=== PATIENT | female | born 1990 | race Caucasian/White ===

== ENCOUNTER → 2016-08-03 | Outpatient (REF) | payer OTHER ==
[~2016-08-03] MED LIST: /MOM400 PO; ACET50TA PO; COLA50CA3 PO; IBUP600T26 PO
[2016-08-04 13:29] LABS: AMYLASE 48 U/L (25-115)
== END ==
LOC: M LAB REF 12:58
PROVIDERS: ATTEND Nurse Practitioner Family
DX: R10.13 Epigastric pain (principal)

== ENCOUNTER → 2016-09-17 | Outpatient (REF) | payer OTHER | LOC: M SFHCWAGY 15:52 | PROVIDERS: ATTEND Nurse Practitioner Women's Health | DX: Z12.4 Encounter for screening for malignant neoplasm of cervix (principal) ==

== ENCOUNTER → 2016-10-14 | Outpatient (CLI) | payer BC, OTHER ==
[2016-10-14 15:25] LABS: BASO % 0.3 % (0.0-1.0); EOS # 0.1 K/mm3 (0.0-0.50); EOS % 0.8 % (0.0-3.0); LARGE UNSTAINED CELL # 0.2 K/mm3 (0.0-0.4); LARGE UNSTAINED CELL % 1.5 % (0.0-4.0); LYMPH # 2.4 K/mm3 (1.5-6.5); MEAN CORPUSCULAR HEMOGLOBIN 28.9 pg (27.0-33.0); MEAN CORPUSCULAR HGB CONC 33.6 g/dl (32.0-36.5); MONO # 0.5 K/mm3 (0.0-0.8); MONO % 5.1 % (0.0-5.0); NEUTROPHILS # 7.5 K/mm3 (1.8-7.7); NEUTROPHILS % 71.4 % (36.0-66.0); PLATELET COUNT, AUTOMATED 259 k/mm3 (150-450)
[2016-10-15 10:16] LABS: HBsAg Prenatal NEGATIVE (NEGATIVE)
[2016-10-17 09:07] LABS: WHITE BLOOD COUNT 10.5 K/mm3 (4.0-10.0)
== END ==
LOC: M LAB 14:35
PROVIDERS: ATTEND Specialist
DX: Z34.81 Encounter for supervision of other normal pregnancy, first trimester (principal); Z36 Encounter for antenatal screening of mother

== ENCOUNTER → 2016-12-31 | Outpatient (CLI) | payer BC, OTHER ==
--- NOTE | 2016-12-31 12:47 | REP ---
Clinical: Anatomical evaluation. Comparison: None . Findings: Examination demonstrates a single live intrauterine in cephalic presentation. motion is identified by technologist. Placenta is noted posteriorly and grade zero without evidence for placenta previa or abruption. Amniotic fluid volume is normal. Cervix measures 5.2 cm in length and appears closed. No evidence for nuchal cord. Gestational age by LMP 18 weeks 1 day with ELFEGO 06/02/2017 . Gestational age by current measurements 19 weeks 4 days with ELFEGO 05/23/2017 . FHR equals 157 beats per minute. BPD 4.5 cm 90 weeks 4 days HC 16.3 cm 19 weeks 1 day AC 14.5 cm 19 weeks 6 days FL 3.1 cm 19 weeks 5 days HL 2.9 cm 19 weeks 4 days HC/AC ratio 1.13 Estimated weight 307 grams (>97 percentile based on age by LMP). Anatomical assessment demonstrates normal structures including cranium, choroid plexus, cavum, cerebellum/posterior fossa, lungs, four-chamber heart/ right ventricular outflow tract, diaphragm, stomach, cord insertion, kidneys/bladder, spine, and extremities. Impression: 1. Single live intrauterine in cephalic presentation. 2. Limited evaluation of the left cardiac ventricular outflow tract, facial features, and three-vessel cord may warrant reevaluation and follow-up. The remainder of the anatomical assessment is complete and normal. Signed by Carlos Garibay MD 12/31/2016 12:38 P
== END ==
LOC: M RAD 11:25
PROVIDERS: ATTEND Specialist
DX: Z34.82 Encounter for supervision of other normal pregnancy, second trimester (principal); Z36 Encounter for antenatal screening of mother; Z3A.19 19 weeks gestation of pregnancy

== ENCOUNTER → 2017-01-17 | Outpatient (CLI) | payer BC, OTHER ==
--- NOTE | 2017-01-17 17:02 | REP ---
Obstetric sonography: History: Supervision of followup anatomy. Findings: Scanning through the gravid uterus demonstrates a viable single intrauterine gestation in a variable lie. motion is observed and heart rate is recorded at 139 beats per minute. A posterior grade 1 placenta is seen without evidence of previa. Amniotic fluid is subjectively normal. Closed cervical length is 3.9 cm visualized transabdominally. No extrauterine abnormalities observed. There has been appropriate interval growth. No anomaly is seen. Cerebellum and posterior fossa, spine and upper extremities are less than optimally seen due to position today. The following additional anatomic structures are identified today and felt to be unremarkable: cranium, cavum, face and profile, lungs, four-chamber heart with left and right ventricular outflow tract views, diaphragm, left-sided stomach, abdominal wall cord insertion, three-vessel umbilical cord, kidneys and bladder, lower extremities. Biometry chart: BPD 5.0 cm 21 weeks 1 day Head circumference 19.0 cm 21 weeks 2 days Abdominal circumference 16.3 cm 21 weeks 3 days Femur length 3.6 cm 21 weeks 2 days Humeral length 3.3 cm 21 weeks 1 day HC/AC ratio normal 1.16, cephalic index normal 0.72 estimated weight 415 grams 0 pounds 14 ounces 72nd percentile for 20 weeks 4 days. Impression: Viable single intrauterine gestation at 21 weeks 0 days by today's composite criteria. Expected gestational age estimate based on prior sonography is 22 weeks 0 days ELFEGO by prior sonography 05/23/2017. Signed by Christoph Birmingham MD 01/18/2017 07:52 A
== END ==
LOC: M RAD 15:39
PROVIDERS: ATTEND Advanced Practice Midwife
DX: Z34.82 Encounter for supervision of other normal pregnancy, second trimester (principal); Z36 Encounter for antenatal screening of mother; Z3A.21 21 weeks gestation of pregnancy

== ENCOUNTER → 2017-02-07 | Outpatient (CLI) | payer BC, OTHER ==
--- NOTE | 2017-02-07 17:33 | REP ---
OB ULTRASOUND: Real-time sonographic evaluation of the gravid uterus is performed. There is a single living intrauterine gestation. The estimated gestational age is 23 weeks 4 days with EDC 06/02/2017. Today's measurements indicate appropriate growth. BPD 61 mm = 25 weeks 0 days, at the 78th percentile. HC 237 mm = 25 weeks 5 days, at the 95th percentile. AC 197 mm = 24 weeks 3 day, at the 66th percentile. Femur length 45 mm = 24 weeks 6 days, at the 76th percentile. HC/AC ratio 1.20 within normal range. Estimated weight 725 grams 78th percentile. Cervix is closed measures 5.2 cm in length. heart rate 135 beats per minute. SEEN/GROSSLY UNREMARKABLE Lateral ventricles Yes Posterior fossa Yes Upper lip No Four-chamber heart Yes LVOT No RVOT No Stomach Yes Cord insertion Yes Three vessel cord Yes Kidneys Yes Bladder Yes Spine Yes position: Variable. Placenta: Posterior and grade 1 with no previa or abruption. Amniotic fluid: Within normal limits. Signed by Tevin Paula MD 02/08/2017 08:45 A
== END ==
LOC: M RAD 15:53
PROVIDERS: ATTEND Specialist
DX: Z34.82 Encounter for supervision of other normal pregnancy, second trimester (principal); Z3A.23 23 weeks gestation of pregnancy; Z36 Encounter for antenatal screening of mother

== ENCOUNTER → 2017-02-25 | Outpatient (CLI) | payer BC, OTHER ==
[2017-02-25 10:41] LABS: BASO % 0.1 % (0.0-1.0); EOS % 0.3 % (0.0-3.0); LARGE UNSTAINED CELL # 0.1 K/mm3 (0.0-0.4); LARGE UNSTAINED CELL % 0.7 % (0.0-4.0); LYMPH # 1.7 K/mm3 (1.5-6.5); LYMPH % 12.5 % (24.0-44.0); MEAN CORPUSCULAR HEMOGLOBIN 28.8 pg (27.0-33.0); MEAN CORPUSCULAR HGB CONC 33.1 g/dl (32.0-36.5); MEAN CORPUSCULAR VOLUME 87.1 fl (80.0-96.0); MONO # 0.5 K/mm3 (0.0-0.8); MONO % 3.8 % (0.0-5.0); NEUTROPHILS # 10.6 K/mm3 (1.8-7.7); NEUTROPHILS % 82.5 % (36.0-66.0); PLATELET COUNT, AUTOMATED 227 k/mm3 (150-450); RED CELL DISTRIBUTION WIDTH 13.3 % (11.5-14.5); WHITE BLOOD COUNT 12.8 K/mm3 (4.0-10.0)
== END ==
LOC: M LAB 09:00
PROVIDERS: ATTEND Advanced Practice Midwife
DX: Z34.83 Encounter for supervision of other normal pregnancy, third trimester (principal); Z36 Encounter for antenatal screening of mother

== ENCOUNTER → 2017-02-25 | Outpatient (CLI) | payer BC, OTHER ==
--- NOTE | 2017-02-25 10:54 | REP ---
OB ULTRASOUND: Real-time sonographic evaluation of the gravid uterus performed. There is a single living intrauterine gestation. The estimated gestational age 26 weeks 1 day, EDC 06/02/2017. Today's measurements indicate appropriate growth. Biometry and Growth: BPD 70 mm = 28 weeks 1 day, 91st percentile HC 257 mm = 28 weeks 0 days, 89th percentile AC 232 mm = 27 weeks 4 days, 80th percentile FL 52 mm = 27 weeks 6 days, 87th percentile HC/AC ratio 1.1 within normal range. Estimated weight 1116 grams 88th percentile. SEEN/GROSSLY UNREMARKABLE Lateral ventricles No Posterior fossa Yes Upper lip Yes Four-chamber heart Yes LVOT Yes RVOT No Stomach Yes Cord insertion No Three vessel cord Yes Kidneys Yes Bladder Yes Spine No Cervical length: Closed and measures 3.2 cm in length. heart rate: 140 beats per minute. position: Breech Placenta: Posterior and grade 1 with no previa or abruption. Amniotic fluid: Within normal limits, STEPHANIE 17.1 within normal range of 9.7 to 22.3. S/D ratio 3.23 within normal range. RI 0.69 within normal range. Signed by Tevin Paula MD 02/25/2017 09:38 A
== END ==
LOC: M RAD 07:56
PROVIDERS: ATTEND Advanced Practice Midwife
DX: Z34.82 Encounter for supervision of other normal pregnancy, second trimester (principal); Z36 Encounter for antenatal screening of mother; Z3A.26 26 weeks gestation of pregnancy

== ENCOUNTER → 2017-04-08 | Outpatient (REF) | payer OTHER | LOC: M LAB REF 12:54 | PROVIDERS: ATTEND Obstetrics & Gynecology | DX: Z34.83 Encounter for supervision of other normal pregnancy, third trimester (principal) ==

== ENCOUNTER 2017-05-19 09:23 | Outpatient (CLI) | payer BC, OTHER ==
[~2017-05-19] VITALS: Ht 167.6 cm; Wt 108.6 kg
[2017-05-19] MEDS ORDERED: UNIS25TA2 PO (09:33)
[2017-05-19] MEDS ORDERED: AMOX500T PO (09:33)
[2017-05-19] MEDS ORDERED: ALBU2TA PO (09:33)
[2017-05-19 09:36] VITALS: BP 133/93
[2017-05-19 09:37] VITALS: BP 135/80
[2017-05-19] MEDS ORDERED: CYCLOBENZAPRINE 10 MG TAB PO ONE (10:00)
[2017-05-19] MEDS ORDERED: PERCOCET 5MG/325MG TAB PO ONE ×2 (10:00→11:15)
[2017-05-19] MEDS ORDERED: OXYC1TAB23 PO (11:10)
== END 2017-05-19 11:57 | disposition home or self-care (01) ==
LOC: M LDO 09:23
PROVIDERS: ATTEND Specialist
DX: O26.893 Other specified pregnancy related conditions, third trimester (principal); Z3A.38 38 weeks gestation of pregnancy; M54.9 Dorsalgia, unspecified

== ENCOUNTER 2017-05-28 08:05 | Inpatient (IN) | payer BC, OTHER ==
[2017-05-28] VITALS (31 sets, daily range): BP systolic 105–149; BP diastolic 55–89
[~2017-05-28] VITALS: Ht 167.6 cm; Wt 107.2 kg
[~2017-05-28 08:05] MED LIST changes: +ALBU2TA PO; +AMOX500T PO; +OXYC1TAB23 PO; +UNIS25TA2 PO
[2017-05-28 09:11] LABS: MEAN CORPUSCULAR HEMOGLOBIN 26.7 pg (27.0-33.0); MEAN CORPUSCULAR HGB CONC 32.5 g/dl (32.0-36.5); MEAN CORPUSCULAR VOLUME 82.2 fl (80.0-96.0); PLATELET COUNT, AUTOMATED 276 10^3/uL (150-450); RED CELL DISTRIBUTION WIDTH 14.5 % (11.5-14.5); WHITE BLOOD COUNT 12.7 10^3/uL (4.0-10.0)
[2017-05-28] MEDS: miSOPROStol 50 MCG 1/2 TAB (S0191) PO SCH ×2 (09:26→13:25)
--- NOTE | 2017-05-28 09:53 | HPE ---
DATE OF ADMISSION: 05/28/2017 Tressa is a 26-year-old 2, para 1-0-0-1 at 39-2/7 weeks gestation with an estimated date of confinement (EDC) of 06/02/2017 based on last menstrual period and confirmed by first trimester ultrasound. She presents to labor and delivery today for social induction per consult with Dr. Esme Villeda. She denies regular contractions, vaginal bleeding and leakage of fluid. The fetus has been active. care was initiated at [facility] in the first trimester. course uncomplicated. OBSTETRICAL HISTORY: October 2013 spontaneous vaginal delivery, 7 pound 6 ounce female at 40 weeks gestation. OBSTETRICAL LABS: B positive. Antibody screen negative. Rubella immune. VDRL nonreactive. Urine culture no growth. Hep B surface antigen negative. HIV negative. Hep C antibody nonreactive. Gonorrhea and chlamydia negative. She declined genetic serum screening markers. Gestational diabetic screening normal at 105 and GBS is negative. PAST MEDICAL HISTORY: Anxiety. depression. Seasonal allergies. Fibrocystic breast. SURGERIES: [place] teeth. Adenoids. FAMILY HISTORY: Depression and autism. SOCIAL HISTORY: The patient is . is at bedside and supportive. She is a nonsmoker. Denies alcohol and drug use. Denies history of sexually transmitted infection and denies history of abuse physical, sexual and emotional. ALLERGIES: No known drug allergies. CURRENT MEDICATIONS: - Flexeril as needed - Ventolin as needed - vitamin OBJECTIVE: Temperature 98.7, pulse 89, respirations 22, blood pressure is 121/61. She is alert and oriented times three. No apparent distress. heart rate is 130 with moderate variability, positive accelerations, no decelerations. There is no pattern of regular contractions. Her abdomen is gravid, cephalic presentation. Estimated weight 8 pounds. Sterile vaginal exam 2 cm dilated 50% effaced, -3 station. ASSESSMENT: Intrauterine at 39-2/7 weeks. heart rate category 1. PLAN: Admit the patient to labor and delivery. Saline lock. Out of bed ad arnulfo. Regular diet at this time. Labs routine. Misoprostol 50 mcg p.o. q.4 h for cervical ripening. I did review risks to induction of labor including increased risk for section, failed induction of labor, and intolerance to labor. The patient and her have had their questions answered and still desire to proceed with induction of labor for social reasons per patient request. I do anticipate cervical ripening.
[2017-05-28] MEDS ORDERED: LR 1,000 ML IV SCH (17:39)
[2017-05-28] MEDS ORDERED: OXYTOCIN DRIP 30 UNITS in APPROPRIATE DILUENT 1 EA IV SCH (17:45)
[2017-05-28] MEDS ORDERED: FENTANYL 2MCG/ML ROPIVACAINE 0.2% IN 0.9% NACL 200ML IVBAG As Ordered ONE (21:25)
[2017-05-28] MEDS ORDERED: NALOXONE INJ 0.4 MG/1 ML VIAL (J2310) IV PRN (23:00)
[2017-05-28] MEDS ORDERED: ONDANSETRON 4MG/2ML VIAL (J2405) IV PRN (23:00)
[2017-05-28] MEDS ORDERED: LACTATED RINGER'S 1000 ML IV PRN (23:00)
[2017-05-28] MEDS ORDERED: EPIDURAL/PCA KEYS XX PRN (23:00)
[2017-05-28] MEDS ORDERED: EPIDURAL COMMENT XX SCH (23:00)
[2017-05-28] MEDS ORDERED: ePHEDrine SULFATE 25 MG/5 ML(5MG/ML) SYRINGE IV PRN (23:00)
[2017-05-28] MEDS ORDERED: FENTANYL/ROPIVACAINE/NACL BAG 200 ML EPIDURAL SCH (23:00)
[2017-05-28] MEDS ORDERED: REFRIGERATOR IV KEYS XX PRN (23:00)
[2017-05-28] MEDS ORDERED: diphenhydrAMINE INJ 50MG/ML VIAL (J1200) IV PRN (23:00)
[2017-05-29] VITALS (10 sets, daily range): BP systolic 97–143; BP diastolic 52–74
[2017-05-29] MEDS ORDERED: OXYTOCIN DRIP 30 UNITS in APPROPRIATE DILUENT 1 EA IV SCH (00:51)
[2017-05-29] MEDS ORDERED: RHOGAM 300 MCG (1500 IU) INJ (J2790) IM SCH (01:00)
[2017-05-29] MEDS ORDERED: DOCUSATE SODIUM 100 MG CAP PO PRN (01:00)
[2017-05-29] MEDS ORDERED: DIBUCAINE 1% OINTMENT 30GM TOP PRN (01:00)
[2017-05-29] MEDS ORDERED: ONDANSETRON 4MG/2ML VIAL (J2405) IV PRN (01:00)
[2017-05-29] MEDS ORDERED: METHYLERGONOVINE MALEATE 0.2 MG TAB PO PRN (01:00)
[2017-05-29] MEDS ORDERED: MEASLES,MUMPS,RUBELLA VACCINE INJ (MMR-II) (90707) SC SCH (01:00)
[2017-05-29 01:03] LABS: CORD GAS ABE A -2.6; CORD GAS ABE V -5.2; CORD GAS HCO3 A 25.2 MEQ/L; CORD GAS HCO3 V 19.7 MEQ/L; CORD GAS O2 SAT A 35.3 %; CORD GAS O2 SAT V 69.6 %; CORD GAS PCO2 A 55.3 mmHg; CORD GAS PCO2 V 36.8 mmHg; CORD GAS PH A 7.277 UNITS; CORD GAS PH V 7.347 UNITS; CORD GAS PO2 A 17.6 mmHg; CORD GAS SBC A 20.7 MEQ/L; CORD GAS SBC V 19.6 MEQ/L; CORD GAS TCO2 A 26.9 MEQ/L; CORD GAS TCO2 V 20.9 MEQ/L
--- NOTE | 2017-05-29 01:47 | DN ---
DATE OF SERVICE: 05/29/2017 Tressa is a 26-year-old 2, para 2-0-0-2 now, who was admitted to labor and delivery for induction of labor due to social reasons. Misoprostol and intravenous (IV) Pitocin was utilized and labor did ensue. She used an epidural for her labor coping. She progressed to full dilation at 0023. She pushed to a normal spontaneous vaginal delivery of a live male infant in occiput anterior (OA) position with restitution to right occiput transverse (ROT) position at 0030. There was a nuchal cord times one, tight that was reduced with a somersault maneuver at the time of delivery. [place] male shoulders delivered with gentle downward traction and the corpus immediately followed. He was placed on maternal abdomen crying and active. Mouth and nares were bulb suctioned. Cord was clamped times two and cut by the father of the baby. Cord blood and cord gases were obtained. A spontaneous expulsion of an intact placenta with three-vessel cord by Nina mechanism was at 0035. Uterine hemostasis was achieved with IV Pitocin rapid infusion and uterine fundal massage. Estimated blood loss 300 mL. Perineum and vagina inspected, noted to be intact. [place] male weighed 8 pounds 7 ounces, 3830 grams, scores 8 and 9. Mom is going to bottle feed her son and the family have named him Mk. At the close of delivery, lap counts, needle counts, and instrument counts were correct and verified.
[2017-05-29] MEDS: IBUPROFEN 800 MG TAB PO PRN ×2 (05:33→15:24)
[2017-05-29] MEDS: PRENATAL VITAMINS CHEWABLE TABLET PO SCH (09:25)
[2017-05-29] MEDS: ACETAMINOPHEN 500 MG TAB PO PRN (09:25)
[2017-05-30] MEDS: ACETAMINOPHEN 500 MG TAB PO PRN (00:20)
[2017-05-30 05:00] VITALS: BP 138/74
[2017-05-30 05:57] VITALS: BP 135/89
[2017-05-30] MEDS: PRENATAL VITAMINS CHEWABLE TABLET PO SCH (07:59)
[2017-05-30] MEDS: IBUPROFEN 800 MG TAB PO PRN (08:00)
[2017-05-30] MEDS ORDERED: IBUP-1114 PO (09:32)
== END 2017-05-30 10:15 | disposition home or self-care (01) | DRG 560 ==
LOC: M LDI 08:05 → M OBS 05-29 02:54
PROVIDERS: ADMIT Advanced Practice Midwife; ATTEND Advanced Practice Midwife
PROC: 10E0XZZ Delivery of Products of Conception, External Approach (ICD-10-PCS; principal; 2017-05-29)
PROC: 3E0DXGC Introduction of Other Therapeutic Substance into Mouth and Pharynx, External Approach (ICD-10-PCS; 2017-05-29)
DX: O69.89X0 Labor and delivery complicated by other cord complications, not applicable or unspecified (principal); Z37.0 Single live birth; Z3A.39 39 weeks gestation of pregnancy

== ENCOUNTER 2017-07-06 08:34 | Day surgery (SDC) | payer BC, OTHER ==
[2017-07-06] MEDS ORDERED: LR 1,000 ML IV ×3 (08:45→11:30)
[2017-07-06] MEDS ORDERED: LIDOCAINE 1% MDV 20ML VIAL SQ (08:45)
[2017-07-06 09:03] LABS: HEMATOCRIT 37.8 % (36.0-47.0); HEMOGLOBIN 11.9 g/dl (12.0-16.0)
[2017-07-06 09:16] LABS: CONTROL LINE UCG INT CTR LINE PRESENT; URINE PREG TEST NEGATIVE (NEGATIVE)
[2017-07-06] MEDS: BUPIVACAINE HCL 0.25% 30 ML VIAL As Ordered (10:29)
[2017-07-06] MEDS ORDERED: HYDROmorphone HCL 1 MG/ML SYRINGE (J1170) As Ordered (11:01)
[2017-07-06] MEDS ORDERED: fentaNYL 100 MCG/2 ML INJECTION (J3010) As Ordered (11:01)
[2017-07-06] MEDS ORDERED: MIDAZOLAM INJ 2 MG/2 ML VIAL (J2250) As Ordered (11:01)
[2017-07-06] MEDS ORDERED: fentaNYL 250 MCG/5 ML INJECTION (J3010) As Ordered (11:01)
[2017-07-06] MEDS ORDERED: GLYCOPYRROLATE INJ 0.2 MG/ML 2 ML VIAL As Ordered ×2 (11:04)
[2017-07-06] MEDS ORDERED: LIDOCAINE 2% INJ 100 MG/5 ML SDV (FOR ANES.) As Ordered (11:04)
[2017-07-06] MEDS ORDERED: PROPOFOL 200 MG/20 ML VIAL As Ordered (11:04)
[2017-07-06] MEDS ORDERED: ROCURONIUM BROMIDE 50 MG/5 ML VIAL As Ordered (11:04)
[2017-07-06] MEDS ORDERED: NEOSTIGMINE 10 MG/10 ML VIAL (J2710) As Ordered (11:04)
[2017-07-06] MEDS ORDERED: KETOROLAC 60 MG/2 ML VIAL (J1885) As Ordered (11:05)
[2017-07-06] MEDS ORDERED: ONDANSETRON 4MG/2ML VIAL (J2405) As Ordered (11:05)
[2017-07-06] MEDS ORDERED: dexameTHASONE 4 MG/ML 1ML VIAL (J1100) As Ordered (11:05)
[2017-07-06] MEDS: HYDROmorphone HCL 1 MG/ML SYRINGE (J1170) IV ×3 (11:06→11:17)
[2017-07-06] MEDS ORDERED: ONDANSETRON 4MG/2ML VIAL (J2405) IV (11:30)
[2017-07-06] MEDS ORDERED: fentaNYL 100 MCG/2 ML INJECTION (J3010) IV (11:30)
[2017-07-06] MEDS ORDERED: PERCOCET 5MG/325MG TAB PO ×2 (11:30)
[2017-07-06] MEDS: PERCOCET 5MG/325MG TAB PO ×2 (11:32→12:05)
== END 2017-07-06 14:29 | disposition home or self-care (01) ==
LOC: M SDC 08:34
DX: Z30.2 Encounter for sterilization (principal); M12.9 Arthropathy, unspecified; M51.9 Unspecified thoracic, thoracolumbar and lumbosacral intervertebral disc disorder; R09.89 Other specified symptoms and signs involving the circulatory and respiratory systems
CPT/HCPCS: 58671

== ENCOUNTER → 2017-12-13 | Outpatient (CLI) | payer BC, OTHER ==
[2017-12-13 18:53] LABS: FREE T4 0.74 NG/DL (0.76-1.46)
== END ==
LOC: M LAB 17:30
DX: R63.5 Abnormal weight gain (principal)
CPT/HCPCS: 84443

== ENCOUNTER → 2018-01-16 | Outpatient (REF) | payer OTHER ==
[2018-01-17 14:50] LABS: CHLAMYDIA DNA AMPLIFICATION POSITIVE (NEGATIVE); GC DNA AMPLIFICATION NEGATIVE (NEGATIVE)
== END ==
LOC: M LAB REF 13:07
DX: Z01.411 Encounter for gynecological examination (general) (routine) with abnormal findings (principal)

== ENCOUNTER → 2018-02-06 | Outpatient (REF) | payer OTHER ==
[2018-02-06 22:05] LABS: FREE T3 3.4 PG/ML (2.2-4.0)
[2018-02-08 08:59] LABS: HEPATITIS B SURFACE ANTIGEN NEGATIVE (NEGATIVE)
[2018-02-08 09:11] LABS: HEPATITIS C VIRUS ABY INDEX 0.1 INDEX (<0.8)
[2018-02-08 09:12] LABS: HEPATITIS B CORE ANTIBODY IGM NEGATIVE (NEGATIVE)
[2018-02-08 09:13] LABS: HEPATITIS A ANTIBODY IGM NEGATIVE (NEGATIVE); HIV 1&2 SCREEN CENTAUR NEGATIVE (NEGATIVE)
== END ==
LOC: M LAB REF 17:11
DX: E03.9 Hypothyroidism, unspecified (principal); Z11.59 Encounter for screening for other viral diseases
CPT/HCPCS: 87340

== ENCOUNTER → 2018-04-11 | Outpatient (REF) | payer OTHER ==
[2018-04-11 20:57] LABS: CHLAMYDIA DNA AMPLIFICATION NEGATIVE (NEGATIVE); GC DNA AMPLIFICATION NEGATIVE (NEGATIVE)
== END ==
LOC: M SFHCLERA 11:01
DX: N30.01 Acute cystitis with hematuria (principal)

== ENCOUNTER → 2018-06-23 | Outpatient (REF) | payer OTHER ==
[~2018-06-23] MED LIST changes: +IBUP-1114 PO; -UNIS25TA2 PO; +UNIS25TA3 PO
== END ==
LOC: M SFHCLERA 10:25
PROVIDERS: ATTEND Physician Assistant
DX: J02.9 Acute pharyngitis, unspecified (principal)

== ENCOUNTER → 2018-07-31 | Outpatient (REF) | payer OTHER | LOC: M SFHCLERA 10:28 | PROVIDERS: ATTEND Nurse Practitioner Family | DX: R30.0 Dysuria (principal) ==

== ENCOUNTER → 2019-01-13 | Outpatient (CLI) | payer OTHER ==
[~2019-01-13] MED LIST changes: -/MOM400 PO; -ACET50TA PO; +MAPA500T17 PO; +MILK10SU PO
== END ==
LOC: M WUC 11:55
PROVIDERS: ATTEND Physician Assistant
DX: L65.8 Other specified nonscarring hair loss (principal); E66.8 Other obesity; N94.6 Dysmenorrhea, unspecified; F34.1 Dysthymic disorder

== ENCOUNTER → 2019-01-20 | Outpatient (CLI) | payer OTHER, SELFPAY ==
[2019-01-20 12:24] LABS: BASO % 0.4 % (0.0-1.0); EOS % 0.5 % (0.0-3.0); HEMATOCRIT 40.4 % (36.0-47.0); HEMOGLOBIN 13.4 g/dl (12.0-15.5); LYMPH # 1.8 10^3/uL (1.5-6.5); LYMPH % 20.8 % (24.0-44.0); MEAN CORPUSCULAR HEMOGLOBIN 29.5 pg (27.0-33.0); MEAN CORPUSCULAR HGB CONC 33.2 g/dl (32.0-36.5); MEAN CORPUSCULAR VOLUME 88.8 fl (80.0-96.0); MONO # 0.4 10^3/uL (0.0-0.8); MONO % 5.2 % (0.0-5.0); NEUTROPHILS # 6.2 10^3/uL (1.8-7.7); NEUTROPHILS % 72.6 % (36.0-66.0); PLATELET COUNT, AUTOMATED 273 10^3/uL (150-450); RED BLOOD COUNT 4.55 10^6/uL (4.00-5.40); WHITE BLOOD COUNT 8.5 10^3/uL (4.0-10.0)
[2019-01-20 12:51] LABS: BLOOD UREA NITROGEN 8 MG/DL (7-18); CALCIUM LEVEL 9.1 MG/DL (8.5-10.1); CARBON DIOXIDE LEVEL 27 MEQ/L (21-32); CHLORIDE LEVEL 107 MEQ/L (98-107); CREATININE FOR GFR 0.59 MG/DL (0.55-1.30); FREE T4 0.83 NG/DL (0.76-1.46); GLOMERULAR FILTRATION RATE > 60.0 (>60); GLUCOSE, FASTING 79 MG/DL (70-100); POTASSIUM SERUM 4.6 MEQ/L (3.5-5.1); SODIUM LEVEL 140 MEQ/L (136-145); THYROID STIMULATING HORMONE 0.845 uIU/ML (0.358-3.740)
[2019-01-22 10:18] LABS: THYROGLOBULIN ANTIBODY 27.6 U/ML (<60.0); THYROID PEROXIDASE ANTIBODY < 28.0 U/ML (<60.0); TOTAL 25(OH) VITAMIN D 25.9 NG/ML (30.0-100.0)
== END ==
LOC: M LAB 11:29
PROVIDERS: ATTEND Physician Assistant
DX: L65.8 Other specified nonscarring hair loss (principal)

== ENCOUNTER → 2019-04-27 | Outpatient (CLI) | payer OTHER ==
--- NOTE | 2019-04-27 17:36 | REP ---
HISTORY: Pelvic and peroneal pain. The patient complains of pain. Bilateral ovarian Doppler was obtained. Transvesical and transvaginal imaging was obtained. The uterus measures 9.7 x 4.3 x 5.4 cm. The parenchymal echo pattern is normal. The endometrial echo complex is normal measuring 5 mm. Right ovary measures 3.2 x 2.8 x 2.9 cm and is within normal limits with an RI of 0.64. Left ovary measures 3 x 2.2 x 2.4 cm and is within normal limits with an RI of 0.74. In the left adnexa, there is a paraovarian anechoic structure which measures 2.4 x 1.4 x 1.5 cm consistent with a paraovarian cyst. IMPRESSION: No abnormalities are noted. There is a left paraovarian cyst. Electronically Signed by José Miguel Pillai DO 04/30/2019 02:30 P
== END ==
LOC: M RAD 08:00
PROVIDERS: ATTEND Physician Assistant
DX: R10.2 Pelvic and perineal pain (principal)

== ENCOUNTER → 2019-05-04 | Outpatient (REF) | payer OTHER ==
[2019-05-07 13:06] LABS: CHLAMYDIA DNA AMPLIFICATION NEGATIVE (NEGATIVE); GC DNA AMPLIFICATION NEGATIVE (NEGATIVE)
== END ==
LOC: M LAB REF 10:23
PROVIDERS: ATTEND Advanced Practice Midwife
DX: Z11.3 Encounter for screening for infections with a predominantly sexual mode of transmission (principal)

== ENCOUNTER → 2020-02-14 | Outpatient (REF) | payer OTHER | LOC: M SFHCLUC 06:59 | PROVIDERS: ATTEND Physician Assistant | DX: R07.0 Pain in throat (principal) ==

== ENCOUNTER → 2020-06-10 | Outpatient (REF) | payer OTHER | LOC: M LAB REF 17:19 | PROVIDERS: ATTEND Physician Assistant | DX: Z11.3 Encounter for screening for infections with a predominantly sexual mode of transmission (principal) ==

== ENCOUNTER → 2020-12-11 | Outpatient (REF) | payer OTHER | LOC: M LAB REF 21:19 | PROVIDERS: ATTEND Physician Assistant | DX: N39.0 Urinary tract infection, site not specified (principal) ==

== ENCOUNTER → 2021-04-07 | Outpatient (REF) | payer OTHER | LOC: M SFHCWAGY 18:08 | PROVIDERS: ATTEND Advanced Practice Midwife | DX: Z12.4 Encounter for screening for malignant neoplasm of cervix (principal) ==

== ENCOUNTER → 2021-08-04 | Outpatient (CLI) | payer OTHER | LOC: M PLAIMG 15:22 | PROVIDERS: ATTEND Nurse Practitioner Adult Health | DX: M54.2 Cervicalgia (principal) ==

== ENCOUNTER → 2021-08-19 | Outpatient (REF) | payer OTHER | LOC: M WUC 18:32 | PROVIDERS: ATTEND Physician Assistant | DX: J01.90 Acute sinusitis, unspecified (principal) | CPT/HCPCS: 87633; U0003 ==

== ENCOUNTER → 2021-10-30 | Outpatient (CLI) | payer OTHER | LOC: M PLAIMG 15:23 | PROVIDERS: ATTEND Physician Assistant | DX: M47.892 Other spondylosis, cervical region (principal) ==

== ENCOUNTER → 2022-03-30 | Outpatient (REF) | payer OTHER ==
[2022-03-30 18:08] LABS: APPEARANCE, URINE MANUAL CLEAR (CLEAR); COLOR, URINE MANUAL YELLOW (YELLOW)
[2022-03-30 18:09] LABS: BILIRUBIN, URINE MANUAL NEGATIVE (NEGATIVE); BLOOD URINE MANUAL TRACE (NEGATIVE); GLUCOSE, URINE (UA) MANUAL NEGATIVE (NEGATIVE); KETONE, URINE MANUAL NEGATIVE (NEGATIVE); LEUKOCYTE ESTERASE, URINE MAN NEGATIVE (NEGATIVE); NITRITE, URINE MANUAL NEGATIVE (NEGATIVE); PROTEIN, URINE MANUAL NEGATIVE (NEGATIVE); UROBILINOGEN, URINE MANUAL NORMAL (NORMAL)
[2022-03-30 18:45] LABS: BACTERIA, URINE MOD AMOUNT; RBC, URINE 0-1 /hpf (0-3); SQUAMOUS EPITHELIAL CELL URINE MOD AMOUNT /hpf (SMALL AMT)
[2022-03-30 18:46] LABS: MUCUS, URINE SMALL AMOUNT (NEGATIVE)
== END ==
LOC: M LAB REF 16:53
PROVIDERS: ATTEND Nurse Practitioner Adult Health
DX: N89.8 Other specified noninflammatory disorders of vagina (principal); N39.0 Urinary tract infection, site not specified

== ENCOUNTER → 2022-05-03 | Outpatient (REF) | payer BC ==
[2022-05-03 20:21] LABS: GC DNA AMPLIFICATION NEGATIVE (NEGATIVE)
== END ==
LOC: M LAB REF 17:59
PROVIDERS: ATTEND Nurse Practitioner Adult Health
DX: Z20.2 Contact with and (suspected) exposure to infections with a predominantly sexual mode of transmission (principal)

== ENCOUNTER → 2023-01-11 | Outpatient (CLI) | payer BC ==
[~2023-01-11] MED LIST changes: -ALBU2TA PO; +ALBU2TAB13 PO
[2023-01-11 10:06] LABS: BASO % 0.4 % (0.0-1.0); EOS % 0.4 % (0.0-3.0); HEMATOCRIT 40.3 % (36.0-47.0); HEMOGLOBIN 13.3 g/dl (12.0-15.5); LYMPH # 2.1 10^3/uL (1.5-5.0); LYMPH % 22.9 % (24.0-44.0); MEAN CORPUSCULAR HEMOGLOBIN 29.3 pg (27.0-33.0); MEAN CORPUSCULAR VOLUME 88.8 fl (80.0-96.0); MONO # 0.5 10^3/uL (0.0-0.8); MONO % 5.1 % (2.0-8.0); NEUTROPHILS # 6.5 10^3/uL (1.5-8.5); NEUTROPHILS % 70.5 % (36.0-66.0); PLATELET COUNT, AUTOMATED 122 10^3/uL (150-450); RED BLOOD COUNT 4.54 10^6/uL (4.00-5.40); WHITE BLOOD COUNT 9.2 10^3/uL (4.0-10.0)
[2023-01-11 10:29] LABS: ALBUMIN 3.5 G/DL (3.2-5.2); ALKALINE PHOSPHATASE 73 U/L (46-116); ALT/SGPT < 9 U/L (7.0-40); AST/SGOT 14 U/L (<34); BLOOD UREA NITROGEN 13 MG/DL (9-23); CALCIUM LEVEL 8.7 MG/DL (8.5-10.1); CARBON DIOXIDE LEVEL 26 MMOL/L (20-31); CHLORIDE LEVEL 105 MMOL/L (98-107); CHOLESTEROL LEVEL 203 MG/DL (<200); CHOLESTEROL RISK RATIO 4.86 (<5); CREATININE FOR GFR 0.54 MG/DL (0.55-1.30); GLOMERULAR FILTRATION RATE > 60.0 (>60); GLUCOSE, FASTING 81 MG/DL (60-100); HDL CHOLESTEROL 41.7 MG/DL (>40); LDL CHOLESTEROL 129.7 MG/DL (<100); NON-HDL-C 161.3 MG/DL; POTASSIUM SERUM 4.5 MMOL/L (3.5-5.1); SODIUM LEVEL 136 MMOL/L (136-145); TOTAL PROTEIN 6.8 G/DL (5.7-8.2); TRIGLYCERIDES LEVEL 158 MG/DL (<150)
[2023-01-11 10:30] LABS: THYROID STIMULATING HORMONE 0.934 uIU/ML (0.55-4.78); TOTAL 25(OH) VITAMIN D 39.6 NG/ML (20.0-100.0)
[2023-01-11 10:31] LABS: FOLLICLE STIMULATING HORMONE 0.4 mIU/ML; LUTEINIZING HORMONE 0.5 mIU/ML
[2023-01-11 10:32] LABS: FREE T4 0.93 NG/DL (0.89-1.76)
== END ==
LOC: M WUC 08:05
PROVIDERS: ATTEND Family Medicine
DX: E55.9 Vitamin D deficiency, unspecified (principal); Z13.29 Encounter for screening for other suspected endocrine disorder; Z13.220 Encounter for screening for lipoid disorders

== ENCOUNTER → 2023-03-01 | Outpatient (REF) | payer BC ==
[2023-03-01 15:09] LABS: BLOOD UREA NITROGEN 7 MG/DL (9-23); CALCIUM LEVEL 8.8 MG/DL (8.5-10.1); CARBON DIOXIDE LEVEL 26 MMOL/L (20-31); CHLORIDE LEVEL 107 MMOL/L (98-107); CREATININE FOR GFR 0.56 MG/DL (0.55-1.30); GLOMERULAR FILTRATION RATE > 60.0 (>60); GLUCOSE, FASTING 93 MG/DL (60-100); POTASSIUM SERUM 4.2 MMOL/L (3.5-5.1); SODIUM LEVEL 139 MMOL/L (136-145)
== END ==
LOC: M LABWUC 11:48
PROVIDERS: ATTEND Family Medicine
DX: E88.81 Metabolic syndrome and other insulin resistance (principal)

== ENCOUNTER → 2023-03-15 | Outpatient (CLI) | payer BC | LOC: M WUC 12:34 | PROVIDERS: ATTEND Family Medicine | DX: J20.9 Acute bronchitis, unspecified (principal) ==

== ENCOUNTER → 2023-12-21 | Outpatient (REF) | payer BC ==
[2023-12-21 12:26] LABS: Trichomonas vaginalis (AMP) NOT DETECTED (NEGATIVE)
[2023-12-21 12:50] LABS: GC DNA AMPLIFICATION NEGATIVE (NEGATIVE)
== END ==
LOC: M LAB REF 10:05
PROVIDERS: ATTEND Nurse Practitioner Family
DX: R10.30 Lower abdominal pain, unspecified (principal); Z11.3 Encounter for screening for infections with a predominantly sexual mode of transmission

== ENCOUNTER → 2024-01-18 | Outpatient (CLI) | payer BC ==
[2024-01-18 11:56] LABS: BASO # 0.1 10^3/uL (0.0-0.2); BASO % 0.5 % (0.0-1.0); EOS # 0.1 10^3/uL (0.0-0.5); EOS % 0.6 % (0.0-3.0); HEMATOCRIT 41.1 % (36.0-47.0); HEMOGLOBIN 13.4 g/dl (12.0-15.5); LYMPH # 2.2 10^3/uL (1.5-5.0); LYMPH % 21.2 % (24.0-44.0); MEAN CORPUSCULAR HEMOGLOBIN 29.3 pg (27.0-33.0); MEAN CORPUSCULAR HGB CONC 32.6 g/dl (32.0-36.5); MEAN CORPUSCULAR VOLUME 89.7 fl (80.0-96.0); MONO # 0.5 10^3/uL (0.0-0.8); MONO % 4.4 % (2.0-8.0); NEUTROPHILS # 7.4 10^3/uL (1.5-8.5); NEUTROPHILS % 72.8 % (36.0-66.0); PLATELET COUNT, AUTOMATED 287 10^3/uL (150-450); RED BLOOD COUNT 4.58 10^6/uL (4.00-5.40); WHITE BLOOD COUNT 10.2 10^3/uL (4.0-10.0)
[2024-01-18 12:10] LABS: HEMOGLOBIN A1c 4.9 % (4.0-6.0)
[2024-01-18 12:33] LABS: THYROID STIMULATING HORMONE 0.981 uIU/ML (0.55-4.78)
[2024-01-18 12:35] LABS: ALBUMIN 3.8 G/DL (3.2-5.2); ALKALINE PHOSPHATASE 68 U/L (46-116); ALT/SGPT 19 U/L (7.0-40); AST/SGOT 9 U/L (<34); BILIRUBIN,TOTAL 0.9 MG/DL (0.3-1.2); BLOOD UREA NITROGEN 14 MG/DL (9-23); CARBON DIOXIDE LEVEL 26 MMOL/L (20-31); CHLORIDE LEVEL 106 MMOL/L (98-107); CHOLESTEROL LEVEL 202 MG/DL (<200); CHOLESTEROL RISK RATIO 4.65 (<5); CREATININE FOR GFR 0.53 MG/DL (0.55-1.30); FREE T4 1.12 NG/DL (0.89-1.76); GLOMERULAR FILTRATION RATE > 60.0 (>60); GLUCOSE, FASTING 81 MG/DL (60-100); HDL CHOLESTEROL 43.4 MG/DL (>40); NON-HDL-C 158.6 MG/DL; POTASSIUM SERUM 4.2 MMOL/L (3.5-5.1); SODIUM LEVEL 139 MMOL/L (136-145); TOTAL PROTEIN 6.8 G/DL (5.7-8.2); TRIGLYCERIDES LEVEL 148 MG/DL (<150)
== END ==
LOC: M WUC 08:22
PROVIDERS: ATTEND Family Medicine
DX: E88.810 Metabolic syndrome (principal); Z13.0 Encounter for screening for diseases of the blood and blood-forming organs and certain disorders involving the immune mechanism; Z13.220 Encounter for screening for lipoid disorders

== ENCOUNTER → 2024-06-20 | Outpatient (REF) | payer BC | LOC: M LAB REF 16:58 | PROVIDERS: ATTEND Physician Assistant | DX: N39.0 Urinary tract infection, site not specified (principal); N76.0 Acute vaginitis ==

== ENCOUNTER → 2024-08-09 | Outpatient (CLI) | payer BC | LOC: M WUC 15:15 | PROVIDERS: ATTEND Nurse Practitioner Adult Health | DX: Z11.3 Encounter for screening for infections with a predominantly sexual mode of transmission (principal) ==

== ENCOUNTER → 2025-06-04 | Outpatient (CLI) | payer BC ==
[2025-06-04 12:32] LABS: BASO # 0.0 10^3/uL (0.0-0.2); BASO % 0.4 % (0.0-1.0); EOS # 0.1 10^3/uL (0.0-0.5); EOS % 0.8 % (0.0-3.0); LYMPH # 2.2 10^3/uL (1.5-5.0); LYMPH % 25.3 % (24.0-44.0); MONO # 0.4 10^3/uL (0.0-0.8); MONO % 4.8 % (2.0-8.0); NEUTROPHILS # 5.8 10^3/uL (1.5-8.5); NEUTROPHILS % 68.0 % (36.0-66.0); PLATELET COUNT, AUTOMATED 364 10^3/uL (150-450)
[2025-06-04 12:47] LABS: ESTIMATED AVERAGE GLUCOSE 94.0 MG/DL (60-110)
[2025-06-04 13:05] LABS: FREE T4 0.99 NG/DL (0.89-1.76)
[2025-06-04 13:06] LABS: ALT/SGPT 16 U/L (7.0-40); AST/SGOT 17 U/L (<34); CALCIUM LEVEL 8.5 MG/DL (8.5-10.1); CARBON DIOXIDE LEVEL 28 MMOL/L (20-31); CHLORIDE LEVEL 106 MMOL/L (98-107); CHOLESTEROL LEVEL 221 MG/DL (<200); CHOLESTEROL RISK RATIO 4.51 (<5); CREATININE FOR GFR 0.55 MG/DL (0.55-1.30); GLOMERULAR FILTRATION RATE > 90.0 (>60); LDL CHOLESTEROL 150.9 MG/DL (<100); NON-HDL-C 172.1 MG/DL; POTASSIUM SERUM 4.8 MMOL/L (3.5-5.1); SODIUM LEVEL 142 MMOL/L (136-145); TRIGLYCERIDES LEVEL 106 MG/DL (<150)
[2025-06-13 00:58] LABS: INSULIN FREE 9.9 uIU/mL (1.5-14.9); INSULIN TOTAL2 17.1 uIU/mL
== END ==
LOC: M WUC 09:38
PROVIDERS: ATTEND Nurse Practitioner Adult Health
DX: E88.810 Metabolic syndrome (principal); E66.9 Obesity, unspecified

== ENCOUNTER → 2025-06-04 | Outpatient (CLI) | payer BC ==
[2025-06-04 13:06] LABS: TOTAL 25(OH) VITAMIN D 23.8 NG/ML (20.0-100.0)
[2025-06-04 13:07] LABS: VITAMIN B12 LEVEL 412.0 PG/ML (211-911)
== END ==
LOC: M WUC 09:36
PROVIDERS: ATTEND Registered Nurse Psychiatric/Mental Health
DX: F98.8 Other specified behavioral and emotional disorders with onset usually occurring in childhood and adolescence (principal)